=== PATIENT | male | born 1960 | race Caucasian/White ===

== ENCOUNTER 2022-12-07 06:11 | Day surgery (SDC) | payer OTHER, BC ==
[2022-12-07] MEDS ORDERED: Midazolam 1 MG/ML 2 ML SDV IV ONE (06:12)
[2022-12-07] MEDS ORDERED: Ketamine 500 mg/10 ML MDV IV ONE (06:12)
[2022-12-07] MEDS ORDERED: Flumazenil 0.1 MG/ML 5 ML MDV IV ONE (06:12)
[2022-12-07] MEDS ORDERED: Propofol 200 MG/20 ML SDV IV ONE (06:12)
[2022-12-07] MEDS ORDERED: Lactated Ringers 1,000 ML IV SCH (06:15)
[2022-12-07] MEDS ORDERED: Sodium Chloride 0.9% 10 ML Syringe FLUSH PRN (06:15)
[2022-12-07 07:26] VITALS: BP 164/102; PULSE 68
== END 2022-12-07 09:35 | disposition home or self-care (01) ==
LOC: FB.SDS 06:11
PROVIDERS: ATTEND Surgery
DX: Z12.11 Encounter for screening for malignant neoplasm of colon (principal); K40.90 Unilateral inguinal hernia, without obstruction or gangrene, not specified as recurrent; F32.A Depression, unspecified; E78.5 Hyperlipidemia, unspecified; I25.10 Atherosclerotic heart disease of native coronary artery without angina pectoris; F12.20 Cannabis dependence, uncomplicated; Z87.891 Personal history of nicotine dependence; Z79.899 Other long term (current) drug therapy; Z79.82 Long term (current) use of aspirin
CPT/HCPCS: 00812; 45378; J2250; J2704; J3490; J7120